=== PATIENT | male | born 1935 | race Two or more races ===

== ENCOUNTER 2021-04-03 17:48 | Inpatient (IN) | payer OTHER ==
[~2021-04-03] VITALS: Ht 188 cm; Wt 72.2 kg
[2021-04-03] MEDS ORDERED: SODIUM CHLORIDE 0.9% 1,000 ML IV ONE (19:00)
[2021-04-03] MEDS ORDERED: MORPHINE SULFATE INJECTION 2 MG/ML SYRG IV ONE (20:00)
[2021-04-03 23:18] LABS: Basophils # (auto) 0.1 10 ^3/uL (0-0.2); Basophils % (auto) 0.6 % (0.0-2.0); Eosinophils # (auto) 0 10 ^3/uL (0-0.8); Eosinophils % (auto) 0.1 % (0.0-7.0); Hematocrit 31.8 % (41.0-53.0); Hemoglobin 10.5 g/dL (13.5-17.5); Lymphocytes # (auto) 0.4 10 ^3/uL (0.4-5.4); Lymphocytes % (auto) 4.2 % (10.0-50.0); Mean Corpuscular Hemoglobin 32.8 pg (28.0-32.0); Mean Corpuscular Hgb Conc. 33.2 g/dL (32.0-36.0); Mean Corpuscular Volume 98.8 fL (80.0-100.0); Monocytes # (auto) 0.8 10 ^3/uL (0-1.3); Monocytes % (auto) 8.7 % (0.0-12.0); Neutrophils # (auto) 8.4 10 ^3/uL (1.6-8.6); Neutrophils % (auto) 86.4 % (37.0-80.0); Red Blood Cells 3.21 10^6/uL (4.5-5.90); White Blood Cell 9.7 10^3/uL (4.4-10.8)
[2021-04-03 23:36] LABS: Albumin 2.7 g/dL (3.4-5.0); Calcium 8.2 mg/dL (8.5-10.1); Potassium 4.7 mmol/L (3.5-5.1)
[2021-04-03 23:39] LABS: Bilirubin, Total 0.4 mg/dL (0.2-1.0); Total Protein 6.1 g/dL (6.4-8.2)
[2021-04-04] MEDS ORDERED: HYDROmorphone HCL 2 MG/ML VL IV ONE (00:30)
[2021-04-04] MEDS ORDERED: DOCUSATE SOD 100 MG CAP PO PRN (01:45)
[2021-04-04] MEDS ORDERED: HYDROcodone-ACET 5/325MG TAB PO PRN (01:45)
[2021-04-04] MEDS ORDERED: ACETAMINOPHEN 325 MG TAB PO PRN (01:45)
[2021-04-04] MEDS ORDERED: NITROGLYCERIN 0.4 MG SL TAB SL PRN (03:00)
[2021-04-04] MEDS ORDERED: MORPHINE SULFATE INJECTION 2 MG/ML SYRG IV PRN (03:00)
[2021-04-04 03:36] LABS: Basophils # (auto) 0 10 ^3/uL (0-0.2); Eosinophils # (auto) 0 10 ^3/uL (0-0.8)
[2021-04-04 03:41] LABS: Albumin 2.8 g/dL (3.4-5.0); Calcium 8.2 mg/dL (8.5-10.1); Potassium 4.4 mmol/L (3.5-5.1)
[2021-04-04 03:43] LABS: BUN/Creatinine Ratio 29.4
[2021-04-04 03:46] LABS: Bilirubin, Total 0.6 mg/dL (0.2-1.0); Total Protein 6.4 g/dL (6.4-8.2)
[2021-04-04 03:48] LABS: Basophils % (auto) 0.3 % (0.0-2.0); Eosinophils % (auto) 0.1 % (0.0-7.0); Hemoglobin 10.1 g/dL (13.5-17.5); Lymphocytes # (auto) 0.5 10 ^3/uL (0.4-5.4); Lymphocytes % (auto) 5.5 % (10.0-50.0); Mean Corpuscular Hemoglobin 33.3 pg (28.0-32.0); Mean Corpuscular Hgb Conc. 32.7 g/dL (32.0-36.0); Mean Corpuscular Volume 101.9 fL (80.0-100.0); Monocytes # (auto) 1.2 10 ^3/uL (0-1.3); Neutrophils % (auto) 82.1 % (37.0-80.0); Red Blood Cells 3.04 10^6/uL (4.5-5.90); Red Cell Distribution Width 15.4 % (11.8-14.3); White Blood Cell 9.7 10^3/uL (4.4-10.8)
[2021-04-04] MEDS ORDERED: cefTRIAXone 1GM/50ML D5W 50 ML IV ONE (12:30)
[2021-04-04] MEDS: ZINC SULFATE 220mg CAP or TAB PO SCH (13:00)
[2021-04-04] MEDS: ASCORBIC ACID 500 MG TAB PO SCH ×2 (13:00→21:49)
[2021-04-04] MEDS: MULTIPLE VITAMIN TAB PO SCH (13:00)
[2021-04-04] MEDS: AZITHROMYCIN 500MG/ 250ML 250 ML IV SCH (13:01)
[2021-04-04] MEDS: MORPHINE SULFATE 4 MG/ML SYR/VIAL IV PRN ×2 (13:17→20:40)
[2021-04-04] MEDS: ONDANSETRON HCL 4 MG/2 ML VIAL IV PRN ×2 (13:17→20:40)
[2021-04-04] MEDS: FAMOTIDINE (10MG/ML) 2ML VL IV SCH (13:18)
[2021-04-04] MEDS: ENOXAPARIN SOD 40 MG/0.4 ML SYRINGE SC SCH (13:18)
[2021-04-04 13:37] LABS: INR 1.09 (0.9-1.15)
[2021-04-05 06:14] LABS: Basophils # (auto) 0.1 10 ^3/uL (0-0.2); Basophils % (auto) 0.6 % (0.0-2.0); Eosinophils # (auto) 0 10 ^3/uL (0-0.8); Eosinophils % (auto) 0.3 % (0.0-7.0); Hematocrit 26.8 % (41.0-53.0); Hemoglobin 9.3 g/dL (13.5-17.5); Lymphocytes # (auto) 0.6 10 ^3/uL (0.4-5.4); Lymphocytes % (auto) 6.2 % (10.0-50.0); Mean Corpuscular Hgb Conc. 34.7 g/dL (32.0-36.0); Mean Corpuscular Volume 97.7 fL (80.0-100.0); Monocytes # (auto) 1.4 10 ^3/uL (0-1.3); Neutrophils % (auto) 78.9 % (37.0-80.0); Red Blood Cells 2.75 10^6/uL (4.5-5.90); Red Cell Distribution Width 14.5 % (11.8-14.3); White Blood Cell 10.1 10^3/uL (4.4-10.8)
[2021-04-05 06:27] LABS: Potassium 4.1 mmol/L (3.5-5.1)
[2021-04-05 06:33] LABS: Albumin 2.9 g/dL (3.4-5.0); BUN/Creatinine Ratio 31.5; Bilirubin, Total 0.5 mg/dL (0.2-1.0); Calcium 8.3 mg/dL (8.5-10.1); Total Protein 6.7 g/dL (6.4-8.2)
[2021-04-05] MEDS: ENOXAPARIN SOD 40 MG/0.4 ML SYRINGE SC SCH (07:26)
[2021-04-05] MEDS ORDERED: HYDROcodone-ACET 10/325MG TAB PO PRN (08:15)
[2021-04-05] MEDS: cefTRIAXone 1GM/50ML D5W 50 ML IV SCH (08:16)
[2021-04-05] MEDS: MORPHINE SULFATE 4 MG/ML SYR/VIAL IV PRN (08:25)
[2021-04-05] MEDS: ZINC SULFATE 220mg CAP or TAB PO SCH (10:48)
[2021-04-05] MEDS: AZITHROMYCIN 500MG/ 250ML 250 ML IV SCH (10:48)
[2021-04-05] MEDS: MULTIPLE VITAMIN TAB PO SCH (10:48)
[2021-04-05] MEDS: ASCORBIC ACID 500 MG TAB PO SCH ×2 (10:49→23:09)
[2021-04-05] MEDS: FAMOTIDINE (10MG/ML) 2ML VL IV SCH (10:49)
[2021-04-05] MEDS ORDERED: LACTULOSE 20Gm/30ML SOLN PO ONE (12:30)
[2021-04-05] MEDS: HYDROmorphone HCL 2 MG/ML VL IV PRN (15:46)
[2021-04-05] MEDS: ONDANSETRON HCL 4 MG/2 ML VIAL IV PRN (15:46)
[2021-04-05 20:00] VITALS: BP 140/67
[2021-04-05] MEDS ORDERED: ATROPINE SULFATE 1 MG/1 ML VIAL ONE (22:30)
[2021-04-06] VITALS (8 sets, daily range): BP systolic 97–140; BP diastolic 61–78
[2021-04-06 05:29] LABS: Basophils # (auto) 0 10 ^3/uL (0-0.2); Eosinophils # (auto) 0 10 ^3/uL (0-0.8); Eosinophils % (auto) 0.2 % (0.0-7.0); Lymphocytes # (auto) 0.5 10 ^3/uL (0.4-5.4); Lymphocytes % (auto) 4.1 % (10.0-50.0); Monocytes # (auto) 1.5 10 ^3/uL (0-1.3); Nucleated Red Blood Cells % 0.1 %
[2021-04-06 05:36] LABS: Basophils % (auto) 0.3 % (0.0-2.0); Hematocrit 24.4 % (41.0-53.0); Hemoglobin 8.1 g/dL (13.5-17.5); Mean Corpuscular Hemoglobin 32.6 pg (28.0-32.0); Mean Corpuscular Hgb Conc. 33.3 g/dL (32.0-36.0); Mean Corpuscular Volume 98.1 fL (80.0-100.0); Monocytes % (auto) 13.4 % (0.0-12.0); Red Blood Cells 2.49 10^6/uL (4.5-5.90); Red Cell Distribution Width 14.7 % (11.8-14.3)
[2021-04-06 05:45] LABS: BUN/Creatinine Ratio 40.4; Calcium 8.3 mg/dL (8.5-10.1); Potassium 4.7 mmol/L (3.5-5.1)
[2021-04-06] MEDS: cefTRIAXone 1GM/50ML D5W 50 ML IV SCH ×3 (08:30→10:13)
[2021-04-06] MEDS: FAMOTIDINE (10MG/ML) 2ML VL IV SCH (09:40)
[2021-04-06] MEDS: AZITHROMYCIN 500MG/ 250ML 250 ML IV SCH (09:41)
[2021-04-06] MEDS: ZINC SULFATE 220mg CAP or TAB PO SCH (10:00)
[2021-04-06] MEDS: MULTIPLE VITAMIN TAB PO SCH (10:00)
[2021-04-06] MEDS: ASCORBIC ACID 500 MG TAB PO SCH ×2 (10:00→21:45)
[2021-04-06] MEDS ORDERED: TETRACAINE 1% INJ 2 ML VIAL IJ ONE (10:27)
[2021-04-06] MEDS ORDERED: ceFAZolin 1GM/50ML 0 ML IV ONE (10:35)
[2021-04-06] MEDS ORDERED: MORPHINE SULF PF 2 MG/2 ML SYRG ONE (10:49)
[2021-04-06] MEDS ORDERED: fentaNYL CITRATE 100 MCG/2 ML VL ONE (11:01)
[2021-04-06] MEDS ORDERED: MIDAZOLAM HCL 2MG/2ML 2ml VIAL (1mg/ml) ONE (11:01)
[2021-04-06] MEDS ORDERED: NALBUPHINE HCL 10 MG/1ml INJECTION SUBCUT ONE (12:45)
[2021-04-06] MEDS ORDERED: diphenhdrAMINE HCL 50 MG/1 ML VL IV PRN (12:45)
[2021-04-06] MEDS ORDERED: NALOXONE HCL 0.4 MG/ML VIAL IV PRN (12:45)
[2021-04-06] MEDS ORDERED: DexAMETHasone SOD PHOS 10MG/1ML VIAL INJ IV PRN (12:45)
[2021-04-06] MEDS ORDERED: ONDANSETRON HCL 4 MG/2 ML VIAL IV PRN (12:45)
[2021-04-06] MEDS ORDERED: HYDROmorphone HCL 2 MG/ML VL IV PRN (12:45)
[2021-04-06] MEDS ORDERED: ONDANSETRON HCL 4 MG/2 ML VIAL ONE (12:46)
[2021-04-06] MEDS ORDERED: PROPOFOL 10 MG/ML 20 ML IV ONE (13:03)
[2021-04-06] MEDS ORDERED: ceFAZolin 2 GM in D5W 5% 100 ML IV SCH (16:00)
[2021-04-06 16:29] LABS: Basophils # (auto) 0 10 ^3/uL (0-0.2); Basophils % (auto) 0.5 % (0.0-2.0); Eosinophils # (auto) 0.1 10 ^3/uL (0-0.8); Eosinophils % (auto) 0.6 % (0.0-7.0); Hematocrit 21.9 % (41.0-53.0); Hemoglobin 7.4 g/dL (13.5-17.5); Lymphocytes # (auto) 1.1 10 ^3/uL (0.4-5.4); Lymphocytes % (auto) 11.5 % (10.0-50.0); Mean Corpuscular Hemoglobin 33.5 pg (28.0-32.0); Mean Corpuscular Volume 98.6 fL (80.0-100.0); Monocytes # (auto) 1.2 10 ^3/uL (0-1.3); Monocytes % (auto) 12.5 % (0.0-12.0); Neutrophils # (auto) 7.3 10 ^3/uL (1.6-8.6); Neutrophils % (auto) 74.9 % (37.0-80.0); Red Blood Cells 2.22 10^6/uL (4.5-5.90); Red Cell Distribution Width 14.6 % (11.8-14.3); White Blood Cell 9.8 10^3/uL (4.4-10.8)
[2021-04-06] MEDS ORDERED: LIDOCAINE 2% JELLY 11ml (GLYDO) UR ONE (17:45)
[2021-04-06] MEDS: SODIUM CHLOR 0.9% PF (SALINE LOCK) 10ML VIAL/SYR IV SCH (21:46)
[2021-04-07] VITALS (19 sets, daily range): BP systolic 82–129; BP diastolic 35–92
[2021-04-07] MEDS: LACTATED RINGER'S 1,000 ML IV SCH ×4 (00:03→23:05)
[2021-04-07] MEDS: SODIUM CHLOR 0.9% PF (SALINE LOCK) 10ML VIAL/SYR IV SCH ×3 (06:00→23:06)
[2021-04-07 07:23] LABS: Basophils # (auto) 0 10 ^3/uL (0-0.2); Monocytes # (auto) 1.3 10 ^3/uL (0-1.3); Monocytes % (auto) 14.1 % (0.0-12.0); Neutrophils # (auto) 6.5 10 ^3/uL (1.6-8.6); Neutrophils % (auto) 71.9 % (37.0-80.0); Red Cell Distribution Width 14.4 % (11.8-14.3)
[2021-04-07 07:26] LABS: Basophils % (auto) 0.5 % (0.0-2.0); Eosinophils # (auto) 0.2 10 ^3/uL (0-0.8); Eosinophils % (auto) 2.6 % (0.0-7.0); Hematocrit 18.8 % (41.0-53.0); Lymphocytes % (auto) 10.9 % (10.0-50.0); Mean Corpuscular Hemoglobin 33.8 pg (28.0-32.0); Mean Corpuscular Hgb Conc. 34.4 g/dL (32.0-36.0); Mean Corpuscular Volume 98.2 fL (80.0-100.0); Red Blood Cells 1.91 10^6/uL (4.5-5.90); White Blood Cell 9.1 10^3/uL (4.4-10.8)
[2021-04-07 07:43] LABS: Hemoglobin 6.5 g/dL (13.5-17.5)
[2021-04-07 07:55] LABS: Potassium 4.5 mmol/L (3.5-5.1)
[2021-04-07 08:08] LABS: BUN/Creatinine Ratio 39.6
[2021-04-07] MEDS: ZINC SULFATE 220mg CAP or TAB PO SCH (09:49)
[2021-04-07] MEDS: ASCORBIC ACID 500 MG TAB PO SCH ×2 (09:49→23:06)
[2021-04-07] MEDS: MULTIPLE VITAMIN TAB PO SCH (09:49)
[2021-04-07] MEDS: ENOXAPARIN SOD 40 MG/0.4 ML SYRINGE SC SCH (09:50)
[2021-04-07] MEDS: cefTRIAXone 1GM/50ML D5W 50 ML IV SCH (10:15)
[2021-04-07] MEDS: AZITHROMYCIN 500MG/ 250ML 250 ML IV SCH (10:17)
[2021-04-07] MEDS: HYDROmorphone HCL 2 MG/ML VL IV PRN (10:32)
[2021-04-08 05:22] LABS: Basophils # (auto) 0 10 ^3/uL (0-0.2); Eosinophils # (auto) 0.2 10 ^3/uL (0-0.8); Mean Corpuscular Hgb Conc. 34.8 g/dL (32.0-36.0); Monocytes # (auto) 1.1 10 ^3/uL (0-1.3)
[2021-04-08 05:28] LABS: Basophils % (auto) 0.2 % (0.0-2.0); Eosinophils % (auto) 2.5 % (0.0-7.0); Hematocrit 21.4 % (41.0-53.0); Hemoglobin 7.5 g/dL (13.5-17.5); Lymphocytes # (auto) 0.8 10 ^3/uL (0.4-5.4); Lymphocytes % (auto) 10.4 % (10.0-50.0); Mean Corpuscular Hemoglobin 33.2 pg (28.0-32.0); Mean Corpuscular Volume 95.5 fL (80.0-100.0); Monocytes % (auto) 13.7 % (0.0-12.0); Neutrophils % (auto) 73.2 % (37.0-80.0); Nucleated Red Blood Cells % 0.1 %; Red Blood Cells 2.24 10^6/uL (4.5-5.90); Red Cell Distribution Width 14.4 % (11.8-14.3); White Blood Cell 8.2 10^3/uL (4.4-10.8)
[2021-04-08 05:30] VITALS: BP 131/73
[2021-04-08] MEDS: SODIUM CHLOR 0.9% PF (SALINE LOCK) 10ML VIAL/SYR IV SCH ×3 (06:45→22:15)
[2021-04-08 08:08] VITALS: BP 123/56
[2021-04-08] MEDS: cefTRIAXone 1GM/50ML D5W 50 ML IV SCH (09:29)
[2021-04-08] MEDS: MULTIPLE VITAMIN TAB PO SCH (09:29)
[2021-04-08] MEDS: ZINC SULFATE 220mg CAP or TAB PO SCH (09:29)
[2021-04-08] MEDS: ASCORBIC ACID 500 MG TAB PO SCH ×2 (09:30→22:16)
[2021-04-08] MEDS: ENOXAPARIN SOD 40 MG/0.4 ML SYRINGE SC SCH (09:30)
[2021-04-08] MEDS: AZITHROMYCIN 500MG/ 250ML 250 ML IV SCH (11:08)
[2021-04-08 13:00] VITALS: BP 133/64
[2021-04-08] MEDS ORDERED: LACTULOSE 20Gm/30ML SOLN PO ONE (13:15)
[2021-04-08] MEDS: LACTATED RINGER'S 1,000 ML IV SCH (14:45)
[2021-04-08 16:58] VITALS: BP 136/61
[2021-04-09 05:29] LABS: Basophils # (auto) 0 10 ^3/uL (0-0.2); Eosinophils # (auto) 0.1 10 ^3/uL (0-0.8); Hemoglobin 7.7 g/dL (13.5-17.5); Lymphocytes # (auto) 0.7 10 ^3/uL (0.4-5.4); Mean Corpuscular Hemoglobin 32.6 pg (28.0-32.0); Neutrophils # (auto) 5.9 10 ^3/uL (1.6-8.6); Red Cell Distribution Width 14.7 % (11.8-14.3); White Blood Cell 7.9 10^3/uL (4.4-10.8)
[2021-04-09 05:36] LABS: Basophils % (auto) 0.2 % (0.0-2.0); Eosinophils % (auto) 1.9 % (0.0-7.0); Hematocrit 22.4 % (41.0-53.0); Lymphocytes % (auto) 8.9 % (10.0-50.0); Mean Corpuscular Hgb Conc. 34.2 g/dL (32.0-36.0); Mean Corpuscular Volume 95.4 fL (80.0-100.0); Monocytes # (auto) 1.1 10 ^3/uL (0-1.3); Monocytes % (auto) 14.1 % (0.0-12.0); Neutrophils % (auto) 74.9 % (37.0-80.0); Nucleated Red Blood Cells % 0.1 %; Red Blood Cells 2.35 10^6/uL (4.5-5.90)
[2021-04-09 09:00] VITALS: BP 139/69
[2021-04-09] MEDS: cefTRIAXone 1GM/50ML D5W 50 ML IV SCH (09:00)
[2021-04-09] MEDS: ZINC SULFATE 220mg CAP or TAB PO SCH (10:15)
[2021-04-09] MEDS: AZITHROMYCIN 500MG/ 250ML 250 ML IV SCH (10:15)
[2021-04-09] MEDS: ENOXAPARIN SOD 40 MG/0.4 ML SYRINGE SC SCH (10:16)
[2021-04-09] MEDS: MULTIPLE VITAMIN TAB PO SCH (10:16)
[2021-04-09] MEDS: ASCORBIC ACID 500 MG TAB PO SCH ×2 (10:16→21:15)
[2021-04-09] MEDS: LACTATED RINGER'S 1,000 ML IV SCH ×2 (10:45→21:15)
[2021-04-09 13:00] VITALS: BP 139/75
[2021-04-09] MEDS: SODIUM CHLOR 0.9% PF (SALINE LOCK) 10ML VIAL/SYR IV SCH ×2 (14:00→21:16)
[2021-04-09] MEDS: HYDROmorphone HCL 2 MG/ML VL IV PRN (15:11)
[2021-04-09] MEDS ORDERED: METOPROLOL TARTRATE 1MG/1ML-5ML VIAL IV ONE (15:40)
[2021-04-09 22:00] VITALS: BP 145/76
[2021-04-10 05:00] VITALS: BP 141/75
[2021-04-10] MEDS: SODIUM CHLOR 0.9% PF (SALINE LOCK) 10ML VIAL/SYR IV SCH ×3 (06:24→21:32)
[2021-04-10] MEDS: LACTATED RINGER'S 1,000 ML IV SCH ×3 (07:50→20:22)
[2021-04-10 09:00] VITALS: BP 146/66
[2021-04-10] MEDS: cefTRIAXone 1GM/50ML D5W 50 ML IV SCH (09:00)
[2021-04-10] MEDS: AZITHROMYCIN 500MG/ 250ML 250 ML IV SCH (10:13)
[2021-04-10] MEDS: ZINC SULFATE 220mg CAP or TAB PO SCH (10:13)
[2021-04-10] MEDS: ASCORBIC ACID 500 MG TAB PO SCH ×2 (10:13→21:32)
[2021-04-10] MEDS: ENOXAPARIN SOD 40 MG/0.4 ML SYRINGE SC SCH (10:13)
[2021-04-10] MEDS: MULTIPLE VITAMIN TAB PO SCH (10:13)
[2021-04-10 13:00] VITALS: BP 137/68
[2021-04-10] MEDS: HYDROcodone-ACET 10/325MG TAB PO PRN (16:13)
[2021-04-10 17:00] VITALS: BP 139/71
[2021-04-11] MEDS: SODIUM CHLOR 0.9% PF (SALINE LOCK) 10ML VIAL/SYR IV SCH ×3 (06:38→21:46)
[2021-04-11] MEDS: LACTATED RINGER'S 1,000 ML IV SCH ×3 (06:40→22:45)
[2021-04-11] MEDS: cefTRIAXone 1GM/50ML D5W 50 ML IV SCH (08:45)
[2021-04-11 08:47] VITALS: BP 127/53
[2021-04-11] MEDS: ASCORBIC ACID 500 MG TAB PO SCH ×2 (09:59→21:46)
[2021-04-11] MEDS: ZINC SULFATE 220mg CAP or TAB PO SCH (09:59)
[2021-04-11] MEDS: MULTIPLE VITAMIN TAB PO SCH (09:59)
[2021-04-11] MEDS: ENOXAPARIN SOD 40 MG/0.4 ML SYRINGE SC SCH (10:00)
[2021-04-11] MEDS: AZITHROMYCIN 500MG/ 250ML 250 ML IV SCH (10:01)
[2021-04-11 12:28] VITALS: BP 127/62
[2021-04-11 16:54] VITALS: BP 113/53
[2021-04-11] MEDS: HYDROcodone-ACET 10/325MG TAB PO PRN (20:17)
[2021-04-11 22:00] VITALS: BP 124/65
[2021-04-12 05:00] VITALS: BP 119/58
[2021-04-12] MEDS: SODIUM CHLOR 0.9% PF (SALINE LOCK) 10ML VIAL/SYR IV SCH ×3 (06:00→21:17)
[2021-04-12] MEDS: LACTATED RINGER'S 1,000 ML IV SCH ×2 (08:45→18:45)
[2021-04-12 09:00] VITALS: BP 120/67
[2021-04-12] MEDS: MULTIPLE VITAMIN TAB PO SCH (09:25)
[2021-04-12] MEDS: cefTRIAXone 1GM/50ML D5W 50 ML IV SCH (09:25)
[2021-04-12] MEDS: ASCORBIC ACID 500 MG TAB PO SCH ×2 (09:25→21:17)
[2021-04-12] MEDS: ENOXAPARIN SOD 40 MG/0.4 ML SYRINGE SC SCH (09:25)
[2021-04-12] MEDS: ZINC SULFATE 220mg CAP or TAB PO SCH (09:25)
[2021-04-12] MEDS: AZITHROMYCIN 500MG/ 250ML 250 ML IV SCH (10:00)
[2021-04-12 12:00] VITALS: BP 126/55
[2021-04-12] MEDS: HYDROcodone-ACET 10/325MG TAB PO PRN (21:18)
[2021-04-12 22:50] VITALS: BP 125/69
[2021-04-13] MEDS: LACTATED RINGER'S 1,000 ML IV SCH ×2 (04:45→14:45)
[2021-04-13] MEDS: HYDROcodone-ACET 10/325MG TAB PO PRN ×2 (05:44→21:52)
[2021-04-13] MEDS: SODIUM CHLOR 0.9% PF (SALINE LOCK) 10ML VIAL/SYR IV SCH ×3 (05:46→21:46)
[2021-04-13 06:01] LABS: Basophils # (auto) 0 10 ^3/uL (0-0.2); Basophils % (auto) 0.5 % (0.0-2.0); Eosinophils # (auto) 0.3 10 ^3/uL (0-0.8); Eosinophils % (auto) 3.8 % (0.0-7.0); Hematocrit 24.3 % (41.0-53.0); Hemoglobin 8.2 g/dL (13.5-17.5); Lymphocytes # (auto) 0.8 10 ^3/uL (0.4-5.4); Lymphocytes % (auto) 10.5 % (10.0-50.0); Mean Corpuscular Hemoglobin 32.6 pg (28.0-32.0); Mean Corpuscular Hgb Conc. 33.6 g/dL (32.0-36.0); Mean Corpuscular Volume 97.1 fL (80.0-100.0); Monocytes # (auto) 0.9 10 ^3/uL (0-1.3); Monocytes % (auto) 12.4 % (0.0-12.0); Neutrophils # (auto) 5.4 10 ^3/uL (1.6-8.6); Neutrophils % (auto) 72.8 % (37.0-80.0); Nucleated Red Blood Cells % 0.2 %; Red Cell Distribution Width 14.8 % (11.8-14.3); White Blood Cell 7.4 10^3/uL (4.4-10.8)
[2021-04-13 06:14] LABS: Potassium 4.5 mmol/L (3.5-5.1)
[2021-04-13 06:15] VITALS: BP 142/92
[2021-04-13 06:16] LABS: BUN/Creatinine Ratio 22.5
[2021-04-13 07:00] VITALS: BP 142/62
[2021-04-13 09:00] VITALS: BP 141/70
[2021-04-13] MEDS: ENOXAPARIN SOD 40 MG/0.4 ML SYRINGE SC SCH (10:17)
[2021-04-13] MEDS: ASCORBIC ACID 500 MG TAB PO SCH ×2 (10:17→21:46)
[2021-04-13] MEDS: ZINC SULFATE 220mg CAP or TAB PO SCH (10:17)
[2021-04-13] MEDS: MULTIPLE VITAMIN TAB PO SCH (10:17)
[2021-04-13 13:04] VITALS: BP 133/58
[2021-04-13 17:17] VITALS: BP 134/63
[2021-04-13 21:00] VITALS: BP 128/78
[2021-04-14] MEDS: SODIUM CHLOR 0.9% PF (SALINE LOCK) 10ML VIAL/SYR IV SCH ×3 (05:10→22:00)
[2021-04-14 05:30] VITALS: BP 136/71
[2021-04-14 09:23] VITALS: BP 151/67
[2021-04-14] MEDS: ZINC SULFATE 220mg CAP or TAB PO SCH (09:52)
[2021-04-14] MEDS: MULTIPLE VITAMIN TAB PO SCH (09:52)
[2021-04-14] MEDS: ASCORBIC ACID 500 MG TAB PO SCH ×2 (09:52→22:28)
[2021-04-14] MEDS: ENOXAPARIN SOD 40 MG/0.4 ML SYRINGE SC SCH (09:53)
[2021-04-14 11:55] VITALS: BP 138/66
[2021-04-14] MEDS: HYDROcodone-ACET 10/325MG TAB PO PRN ×2 (15:06→22:28)
[2021-04-14 16:36] VITALS: BP 140/74
[2021-04-14 22:00] VITALS: BP 145/69
[2021-04-15 05:00] VITALS: BP 149/77
[2021-04-15] MEDS: SODIUM CHLOR 0.9% PF (SALINE LOCK) 10ML VIAL/SYR IV SCH ×3 (05:41→22:41)
[2021-04-15 08:45] VITALS: BP 139/65
[2021-04-15] MEDS: MULTIPLE VITAMIN TAB PO SCH (09:56)
[2021-04-15] MEDS: ZINC SULFATE 220mg CAP or TAB PO SCH (09:56)
[2021-04-15] MEDS: ASCORBIC ACID 500 MG TAB PO SCH ×2 (09:57→22:42)
[2021-04-15] MEDS: ENOXAPARIN SOD 40 MG/0.4 ML SYRINGE SC SCH (09:57)
[2021-04-15] MEDS ORDERED: LACTULOSE 20Gm/30ML SOLN PO ONE (11:30)
[2021-04-15 13:00] VITALS: BP 137/82
[2021-04-15 16:56] VITALS: BP 157/83
[2021-04-15 20:00] VITALS: BP 140/75
[2021-04-16] MEDS: ZINC SULFATE 220mg CAP or TAB PO SCH (10:19)
[2021-04-16] MEDS: ASCORBIC ACID 500 MG TAB PO SCH (10:19)
[2021-04-16] MEDS: MULTIPLE VITAMIN TAB PO SCH (10:19)
[2021-04-16] MEDS: ENOXAPARIN SOD 40 MG/0.4 ML SYRINGE SC SCH (10:19)
[2021-04-16] MEDS: SODIUM CHLOR 0.9% PF (SALINE LOCK) 10ML VIAL/SYR IV SCH ×2 (10:20→14:23)
[2021-04-16 14:47] VITALS: BP 136/66
[2021-04-16 15:08] VITALS: BP 136/66
== END 2021-04-16 17:00 | DRG 480 ==
LOC: ER 17:48 → EDBD 17:48 → OVERFLOW 04-04 03:00 → WEST WING 04-05 16:19 → TELE-WESTW 04-09 05:20
PROVIDERS: ADMIT Nurse Practitioner Family; ATTEND Family Medicine
PROC: BQ101ZZ Fluoroscopy of Right Hip using Low Osmolar Contrast (ICD-10-PCS; 2021-04-06)
PROC: 0QS636Z Reposition Right Upper Femur with Intramedullary Internal Fixation Device, Percutaneous Approach (ICD-10-PCS; principal; 2021-04-06 10:58)
PROC: 30233N1 Transfusion of Nonautologous Red Blood Cells into Peripheral Vein, Percutaneous Approach (ICD-10-PCS; 2021-04-07)
DX: S72.21XA Displaced subtrochanteric fracture of right femur, initial encounter for closed fracture (principal); J18.9 Pneumonia, unspecified organism; E43 Unspecified severe protein-calorie malnutrition; D62 Acute posthemorrhagic anemia; Z68.1 Body mass index [BMI] 19.9 or less, adult; H91.90 Unspecified hearing loss, unspecified ear; I10 Essential (primary) hypertension; N40.0 Benign prostatic hyperplasia without lower urinary tract symptoms; R09.02 Hypoxemia; R73.03 Prediabetes; Z20.822 Contact with and (suspected) exposure to COVID-19; W01.0XXA Fall on same level from slipping, tripping and stumbling without subsequent striking against object, initial encounter; Y93.01 Activity, walking, marching and hiking; Y92.481 Parking lot as the place of occurrence of the external cause; Y99.8 Other external cause status
CPT/HCPCS: 36415; 71045; 73502; 73700; 76000; 80048; 80053; 83036; 85025; 85610; 85730; 86850; 86900; 86901; 86920; 87426; 93005; 93306; 96361; 96374; 96375; 97110; 97116; 97163; 97530; C1713; G0378; J0461; J0690; J0696; J2250; J2405; J2704; J3490; J7060

== ENCOUNTER 2021-12-17 02:58 | Emergency (ER) | payer OTHER ==
[~2021-12-17] VITALS: Ht 188 cm; Wt 65.0 kg
[2021-12-17 04:52] LABS: Basophils # (auto) 0 10 ^3/uL (0-0.2); Basophils % (auto) 0.2 % (0.0-2.0); Eosinophils # (auto) 0 10 ^3/uL (0-0.8); Hematocrit 31.9 % (41.0-53.0); Hemoglobin 10.9 g/dL (13.5-17.5); Lymphocytes # (auto) 0.5 10 ^3/uL (0.4-5.4); Lymphocytes % (auto) 6.2 % (10.0-50.0); Mean Corpuscular Hemoglobin 33.2 pg (28.0-32.0); Mean Corpuscular Volume 97.7 fL (80.0-100.0); Monocytes % (auto) 11.7 % (0.0-12.0); Neutrophils # (auto) 6.7 10 ^3/uL (1.6-8.6); Neutrophils % (auto) 81.9 % (37.0-80.0); Red Blood Cells 3.27 10^6/uL (4.5-5.90); Red Cell Distribution Width 13.5 % (11.8-14.3); White Blood Cell 8.2 10^3/uL (4.4-10.8)
[2021-12-17 05:00] LABS: Calcium 8.5 mg/dL (8.5-10.1); Potassium 4.3 mmol/L (3.5-5.1)
[2021-12-17 05:05] LABS: Bilirubin, Total 0.8 mg/dL (0.2-1.0); Total Protein 6.2 g/dL (6.4-8.2)
[2021-12-17 06:28] LABS: INR 1.08 (0.9-1.15)
[2021-12-17 06:44] VITALS: BP 134/54
== END 2021-12-17 06:59 | disposition short-term general hospital (02) ==
LOC: EDBD 02:58 → ER 02:58 → EDUNIT# 02:58 → ER 06:59
DX: S06.5XAA Traumatic subdural hemorrhage with loss of consciousness status unknown, initial encounter (principal); S40.812A Abrasion of left upper arm, initial encounter; S40.811A Abrasion of right upper arm, initial encounter; I10 Essential (primary) hypertension; W19.XXXA Unspecified fall, initial encounter; Y93.89 Activity, other specified; Y92.89 Other specified places as the place of occurrence of the external cause; Y99.8 Other external cause status
CPT/HCPCS: 36415; 70450; 71045; 72125; 74176; 80053; 84484; 85025; 85610; 93005